=== PATIENT | female | born 1950 | race Caucasian/White ===

== ENCOUNTER 2023-02-17 09:30 | Outpatient (RCR) | payer MEDICARE, OTHER | END 2023-02-19 | disposition home or self-care (01) | LOC: MKS.ESL.PT | DX: G60.9 Hereditary and idiopathic neuropathy, unspecified (principal); G25.81 Restless legs syndrome; M54.42 Lumbago with sciatica, left side; G89.29 Other chronic pain ==

== ENCOUNTER 2023-02-17 10:15 | Outpatient (RCR) | payer SELFPAY | END 2023-02-19 | disposition home or self-care (01) | LOC: MKS.ESL.PT | DX: G60.9 Hereditary and idiopathic neuropathy, unspecified (principal); G25.81 Restless legs syndrome; M54.42 Lumbago with sciatica, left side; G89.29 Other chronic pain ==

== ENCOUNTER 2023-03-17 09:00 | Outpatient (RCR) | payer MEDICARE, OTHER | END 2023-03-21 | disposition home or self-care (01) | LOC: MKS.ESL.PT | DX: G60.9 Hereditary and idiopathic neuropathy, unspecified (principal); G25.81 Restless legs syndrome; M54.42 Lumbago with sciatica, left side; G89.29 Other chronic pain ==

== ENCOUNTER 2023-03-17 09:45 | Outpatient (RCR) | payer SELFPAY | END 2023-03-21 | disposition home or self-care (01) | LOC: MKS.ESL.PT | DX: G60.9 Hereditary and idiopathic neuropathy, unspecified (principal); G25.81 Restless legs syndrome; M54.42 Lumbago with sciatica, left side; G89.29 Other chronic pain ==